=== PATIENT | female | born 1990 | race Caucasian/White ===

== ENCOUNTER 2020-07-15 15:39 | Outpatient (RCR) | payer OTHER, SELFPAY ==
--- NOTE | 2020-08-02 15:24 | HO.OPPROGNO ---
Subjective Subjective Date of Service: 07/15/20 Reason For Visit: depression Interim History: I am doing OK. I am really busy. Meds seem to be working. My depression is less. Anxiety is few and far between. Reports regime to be effective and without SE. Overall a decrease in depressive and anxious sx. Pt did make contact with former therapist and feels some closure. School is challenging-she loved [employer]. Professor is challenging for her this semester. Returns to in person classes 07/27/20. Work is great, a safe place . Family is well. Pt has not seen her father. Mother has a new condo in the area-pt is pleased for her and feels this is a secure safe place. Continues with psychotherapy and DBT with [facility]. Med appt TBA. Overall feeling well and finds regime effective. Medication Compliance: Yes Side effects from medications: No Attending Groups: Yes (DBT with [facility]) Review of Systems Review of Systems Yes all other systems are reviewed and are negative Comments: Pt reports she is feeling well. Has great strucutre-work, college and treatment. Mental Status Exam Mental Status Exam Patient Orientation: Person, Place, Time and Situation Level of Consciousness: Awake and Alert Patient Behavior: Appropriate Mood Description: Calm Affect Description: Calm Patient Cognition Impaired: No Ability to Follow Directions: Excellent Speech Pattern: Clear, Appropriate and Spontaneous Speech Memory Description: Intact Hallucinations: None Delusions: Not Present Thought Process: Intact Thought Content: positive for Intact Judgement: Good Discharge Plan Discharge Attending provider: Brooke Murcia Medications: New dextroamphetamine-amphetamine [Adderall XR] 30 mg capsule,extended release 24hr 30 mg PO DAILY Qty: 30 RF: 0 atomoxetine [Strattera] 60 mg capsule 60 mg PO DAILY Qty: 30 RF: 1 dextroamphetamine-amphetamine [Adderall XR] 10 mg capsule,extended release 24hr 10 mg PO DAILY Qty: 30 RF: 0 lamotrigine [Lamictal] 150 mg tablet 150 mg PO BID Qty: 60 RF: 1 sertraline 50 mg tablet 50 mg PO DAILY Qty: 30 RF: 1 Assessment & Plan Patient educated on: medication risk/benefits (Decrease Sertraline to 50 mg daily, continue Adderall,Lamictal, Strattera) and therapeutic strategies Informed Consent: understands and further education needed Reason for contiued therapy Substantial Risk for: harm to self, inability to function and rapid decompensation Greater than 50% of the session was spent on counseling and/or coordination of care
--- NOTE | 2020-08-17 11:37 | P.EN_ITS ---
Event Note Date of Service: 08/17/20 Event Note: 08/13/20: Case review with Bulmaro Quintanilla, pt's therapist from [facility] [phone] x [phone]. He finds pt is a good fit for DBT and is open to the group. He is in process of making alliance. Pt is grieving loss of [facility] [place], who is still on furlough, however with telehealth is making a progressive alliance with Bulmaro. She has been responding well to the structure, homework with DBT, attempting to manage anxious sx with chain analysis. She did report intentional vomiting x 1-is discussing body image and new ways of coping with distress. She demonstrates a strong intrinsic motivation. Pt has not been referred for medications yet, scenario writer requested that she be referred. Pt had hoped to remain at [facility]. Senior Revenue Accountant discussed this with pt on this day as well. Bulmaro will make her medication referral. Will follow until her connection is made.
--- NOTE | 2020-09-16 08:35 | PM.EVENT ---
Event Note Date of Service: 09/16/20 Event Note: Pt notified of [facility] [place] clinic closing. She is on a wait list for a prescriber with [facility] and is pending appointment.
--- NOTE | 2020-09-16 08:35 | P.EN_ITS ---
Event Note Date of Service: 09/16/20 Event Note: Pt notified of [facility] out patient clinic closing. She is on a wait list for a prescriber with [facility] and is pending appointment.
== END 2020-09-30 23:55 | disposition home or self-care (01) ==
LOC: HO.PAOS 15:39
PROVIDERS: Visit Provider Clinical Nurse Specialist Psychiatric/Mental Health, Adult
DX: F32.9 Major depressive disorder, single episode, unspecified (principal)
CPT/HCPCS: 99213